=== PATIENT | female | born 1970 | race Two or more races ===

== ENCOUNTER 2023-11-20 10:56 | Emergency (ER) | payer MEDICAID ==
[~2023-11-20] VITALS: Ht 167.6 cm; Wt 91.0 kg
[2023-11-20 11:02] VITALS: O2SAT 92
[2023-11-20] MEDS: VANCOMYCIN 1G PREMIX 200 ML IV ONE (11:15)
[2023-11-20 11:26] LABS: HEMATOCRIT. 31.9 % (36.0-48.0); HEMOGLOBIN. 9.5 g/dL (12.0-16.0); MEAN CORPUSCULAR HEMOGLOBIN 26.4 pg (28.0-32.0); MEAN CORPUSCULAR HGB CONC 29.8 g/dL (31.0-37.0); MEAN CORPUSCULAR VOLUME 88.4 fL (81.0-99.0); MEAN PLATELET VOLUME 8.9 fl (7.4-10.4); PLATELET 228 x1000/uL (130-400); RED BLOOD CELL COUNT 3.61 mill/uL (4.2-5.4); RED CELL DISTRIBUTION WIDTH 20.7 % (11.6-14.6); WHITE BLOOD COUNT 33.3 x1000/uL (4.5-11.0)
[2023-11-20 11:33] LABS: CHLORIDE 92 mEq/L (98-107); SODIUM 125 mEq/L (136-145)
[2023-11-20 11:35] LABS: DIFFERENTIAL COMMENT 1
[2023-11-20 11:36] LABS: INR 1.5; PROTHROMBIN TIME 16.1 sec (9.6-11.0)
[2023-11-20 11:39] LABS: CREATININE 3.1 mg/dL (0.6-1.0); GLUCOSE 146 mg/dL (70-105)
[2023-11-20 11:40] LABS: UREA NITROGEN BLOOD 54 mg/dL (9-23)
[2023-11-20 11:41] LABS: ALANINE AMINOTRANSFERASE 285 IU/L (10-49); ALBUMIN 2.9 g/dL (3.2-4.8); BILIRUBIN DIRECT 4.1 mg/dL (<=3.0)
[2023-11-20 11:42] LABS: BILIRUBIN TOTAL 6.2 mg/dL (0.1-1.0)
[2023-11-20 11:53] LABS: ASPARTATE AMINOTRANSFERASE 3032 IU/L (<34)
[2023-11-20 12:04] LABS: LACTIC ACID 11.8 mmol/L (0.4-2.0)
[2023-11-20 12:10] LABS: ANISOCYTOSIS 2+; PLATELET ESTIMATE NORMAL
[2023-11-20] MEDS: PIPERACILLIN/TAZO 3.375G/50ML 50 ML IV ONE (12:10)
[2023-11-20] MEDS: MORPHINE SULFATE 4 MG/ML INJ (FOR IV/IM USE) IV STA (12:11)
[2023-11-20] MEDS: SODIUM CHLORIDE 0.9% 1000ML BAG (SEPSIS BOLUS) IV ONE (12:12)
[2023-11-20 12:16] LABS: POTASSIUM 7.7 mEq/L (3.5-5.1)
[2023-11-20 12:17] LABS: CARBON DIOXIDE < 10 mEq/L (21-32); TROPONIN I HIGH SENSITIVITY 336 ng/L (3.0-34)
[2023-11-20] MEDS ORDERED: FUROSEMIDE 100MG/10ML VIAL IV STA (12:33)
[2023-11-20] MEDS ORDERED: ALBUTEROL (0.083%) 2.5MG/3ML NEB HHN ONE (12:45)
[2023-11-20] MEDS ORDERED: PIPERACILLIN/TAZOBACTAM 3.375 G in DEXTROSE 5% WATER 50 ML IV SCH (14:00)
[2023-11-20] MEDS ORDERED: ACETAMINOPHEN 325MG TABLET PO PRN (14:00)
[2023-11-20] MEDS: CALCIUM CHLORIDE 1GM/10ML SYR IV ONE (14:01)
[2023-11-20] MEDS: SODIUM BICARBONATE 8.4% 50MEQ/50ML SYR IV ONE (14:08)
[2023-11-20] MEDS: FUROSEMIDE 40MG/4ML VIAL IV NR (14:09)
[2023-11-20] MEDS: SODIUM POLYSTYRENE SULFONATE 15 G/60 ML BOT PO ONE (14:10)
[2023-11-20] MEDS: INSULIN REGULAR (HUMULIN R) 1000UNITS/10ML VIAL IV ONE (14:19)
[2023-11-20 14:30] VITALS: PULSE 87; RESP 24; TEMP 36.78072; O2SAT 100
[2023-11-20 14:43] LABS: T4 FREE 0.71 ng/dL (0.89-1.76); THYROID STIMULATING HORMONE 6.37 uIU/mL (0.55-4.78)
[2023-11-20 14:50] LABS: PHOSPHORUS 9.7 mg/dL (2.5-4.9)
[2023-11-20 15:34] LABS: CALCIUM 7.9 mg/dL (8.7-10.4)
[2023-11-20 15:47] LABS: POTASSIUM 7.2 mEq/L (3.5-5.1)
[2023-11-20] MEDS ORDERED: ALBUTEROL (0.083%) 2.5MG/3ML NEB HHN NR (16:00)
[2023-11-20] MEDS ORDERED: IPRATROPIUM/ALBUTEROL 0.5-3(2.5)MG/3ML NEB HHN PRN (16:00)
[2023-11-20] MEDS: VANCOMYCIN 750MG/150ML (BAXTER) IV NR (17:36)
[2023-11-20] MEDS: CALCIUM CHLORIDE 1GM/10ML SYR IV NR (17:37)
[2023-11-20 18:04] VITALS: BP 80/57
[2023-11-20] MEDS: NOREPINEPHRINE 8MG/250ML PMX 250 ML IV PRN (18:04)
[2023-11-20] MEDS: SODIUM POLYSTYRENE SULFONATE 15 G/60 ML BOT PO NR (18:16)
[2023-11-20] MEDS: SODIUM BICARBONATE 8.4% 50MEQ/50ML SYR IV NR (18:16)
[2023-11-20] MEDS: DEXTROSE 50% WATER 50ML SYRINGE IV NR (18:16)
[2023-11-20] MEDS: INSULIN REGULAR (HUMULIN R) 1000UNITS/10ML VIAL IV NR (18:31)
[2023-11-20 18:43] LABS: LACTIC ACID 11.8 mmol/L (0.4-2.0)
[2023-11-20 18:53] LABS: HEPATITIS B SURFACE ANTIGEN NEGATIVE (Negative)
[2023-11-20] MEDS: MIDODRINE HCL 5MG TABLET PO SCH (18:57)
[2023-11-20 19:14] LABS: HEPATITIS A AB IGM NEGATIVE (Negative); HEPATITIS B CORE AB IGM NEGATIVE (Negative)
[2023-11-20 19:15] LABS: HEPATITIS C AB NON REACTIVE (Neg) (Negative)
[2023-11-20] MEDS ORDERED: PIPERACILLIN/TAZO 3.375G/50ML IV SCH (20:00)
[2023-11-21] MEDS ORDERED: LEVOTHYROXINE SODIUM 175MCG TABLET PO SCH (07:50)
[2023-11-21] MEDS ORDERED: LACTOBACILLUS GG CAPSULE PO SCH (09:00)
[2023-11-21] MEDS ORDERED: FAMOTIDINE 20MG TABLET PO SCH (09:00)
[2023-11-22 09:06] LABS: COMPLEMENT C3 73 mg/dL (82-167); COMPLEMENT C4 16 mg/dL (12-38)
[2023-11-22 13:07] LABS: ANTI-NUCLEAR ANTIBODIES DIRECT Negative (Negative)
== END 2023-11-20 14:38 ==
LOC: ER 10:56 → EDBEDREQTM 13:43 → EDBEDREQ 13:43 → EDBEDREQSVC 13:43 → ER 14:38
DX: A41.9 Sepsis, unspecified organism (principal); R65.21 Severe sepsis with septic shock; E87.5 Hyperkalemia; E03.9 Hypothyroidism, unspecified; N17.9 Acute kidney failure, unspecified; R74.01 Elevation of levels of liver transaminase levels
CPT/HCPCS: 80076; 80048; 82010; 82150; 82533; 82962; 83880; 84439; 83605; 83690; 84100; 84443; 85025; 85610; 85651; 87340; 87040; 84484; 36415; 86038; 86705; 86709; 84145; 71045; 74176; 76700; 82803; 93005; 31500; 96368; 96365; 96366; 96375; 96376; 99291; 86160 ×2; J3370 ×2; J3490 ×3; J1940; J1815; J2543; J2270; J7030; Z7610 ×4